=== PATIENT | male | born 1945 | race Caucasian/White ===

== ENCOUNTER → 2020-07-06 | Outpatient (CLI) | payer MEDICARE | END | disposition home or self-care (01) | LOC: RAD 10:51 | PROVIDERS: ATTEND Internal Medicine Cardiovascular Disease | DX: R06.02 Shortness of breath (principal) | CPT/HCPCS: 71045; 78582; A9540; A9558 ==

== ENCOUNTER 2020-08-01 08:05 | Outpatient (CLI) | payer MEDICARE | END 2020-08-01 23:59 | disposition home or self-care (01) | LOC: CVU 08:05 | PROVIDERS: ATTEND Internal Medicine Cardiovascular Disease | DX: I08.2 Rheumatic disorders of both aortic and tricuspid valves (principal) | CPT/HCPCS: 93306 ==

== ENCOUNTER 2020-08-31 09:24 | Day surgery (SDC) | payer MEDICARE ==
[~2020-08-31] VITALS: Ht 193 cm; Wt 165.0 kg
[2020-08-31] MEDS ORDERED: DIPHENHYDRAMINE 50 MG/ML, 1ML IVPush ONE (10:00)
[2020-08-31] MEDS ORDERED: SODIUM CHLORIDE 0.9% 1,000 ML IV SCH ×2 (10:00→13:30)
[2020-08-31] MEDS ORDERED: MAGN400T26 PO (10:13)
[2020-08-31] MEDS ORDERED: ASPI81TA45 PO (10:13)
[2020-08-31] MEDS ORDERED: OMEG1CAP23 PO (10:13)
[2020-08-31] MEDS ORDERED: ATOR40TA78 PO (10:13)
[2020-08-31] MEDS ORDERED: FURO20TA3 PO (10:13)
[2020-08-31] MEDS ORDERED: MULT-464 PO (10:13)
[2020-08-31] MEDS ORDERED: PLEASE ENTER HEIGHT AND WEIGHT MC SCH (10:30)
[2020-08-31] MEDS ORDERED: DIPHENHYDRAMINE 50 MG/ML, 1ML ONE (10:36)
[2020-08-31 10:41] LABS: CALCIUM 9.3 mg/dL (8.5-10.1); CREATININE 1.46 mg/dL (0.7-1.3)
[2020-08-31 10:47] LABS: ANION GAP 3 mmol/L (5-15); CHLORIDE 99 mmol/L (98-107)
[2020-08-31] MEDS ORDERED: HEPARIN 1,000 UNITS/ML, 10ML ONE (11:38)
[2020-08-31] MEDS ORDERED: VERAPAMIL 2.5 MG/ML, 2ML ONE (11:38)
[2020-08-31] MEDS ORDERED: FENTANYL PF 100 MCG/2ML ONE (11:38)
[2020-08-31] MEDS ORDERED: MIDAZOLAM 1 MG/ML, 2ML ONE (11:38)
[2020-08-31] MEDS ORDERED: LIDOCAINE-MPF 1%, 5ML ONE (11:38)
[2020-08-31 12:23] LABS: BASOPHILS % (AUTO) 1 % (0-1); EOSINOPHILS % (AUTO) 2 % (1-7); LYMPHOCYTES % (AUTO) 16 % (22-44); MEAN CORPUSCULAR HEMOGLOBIN 34.9 pg (27.5-34.5); MEAN CORPUSCULAR HGB CONC 33.5 g/dL (33.2-36.2); MONOCYTES % (AUTO) 9 % (2-9); NEUTROPHILS % (AUTO) 74 % (42-75); PLATELET COUNT 189 x10^3/uL (130-400); RED BLOOD COUNT 5.25 x10^6/uL (4.38-5.82); RED CELL DISTRIBUTION WIDTH 17.7 % (9.4-14.8)
== END 2020-08-31 14:18 | disposition home or self-care (01) ==
LOC: CACL 09:24
PROVIDERS: ATTEND Internal Medicine Cardiovascular Disease
DX: R94.39 Abnormal result of other cardiovascular function study (principal); I25.10 Atherosclerotic heart disease of native coronary artery without angina pectoris; I25.82 Chronic total occlusion of coronary artery; I27.20 Pulmonary hypertension, unspecified; I42.9 Cardiomyopathy, unspecified; I12.9 Hypertensive chronic kidney disease with stage 1 through stage 4 chronic kidney disease, or unspecified chronic kidney disease; N18.30 Chronic kidney disease, stage 3 unspecified; G47.33 Obstructive sleep apnea (adult) (pediatric); F17.211 Nicotine dependence, cigarettes, in remission; Z99.81 Dependence on supplemental oxygen
CPT/HCPCS: 36415; 80048; 83880; 85025; 93460; 99156; 99157; C1769; C1894; J1200; J1644; J2250; J3010; Q9967; 82803